=== PATIENT | female | born 1945 | race Caucasian/White ===

== ENCOUNTER → 2022-03-10 | Outpatient (CLI) | payer MEDICARE, OTHER ==
--- NOTE | 2022-03-12 13:10 | Diagnostic Imaging Report ---
INDICATION: Routine screening. Comparison is made with prior mammogram from 03/05/2021. 2-D and 3-D bilateral screening mammography was performed with CAD. Both breasts are heterogeneously dense, limiting the sensitivity of mammography. There is an irregular density in the outer aspect of the left breast best seen on the CC view. This appears to be inferiorly located on the tomographic images but not well seen on the MLO view. Additional views are recommended. Right breast is unremarkable. There are benign calcifications bilaterally. Axillae are unremarkable. IMPRESSION: Left breast density. Additional views recommended for further evaluation. ACR BI-RADS Category 0: Incomplete. (Needs additional imaging evaluation). Result letter will be mailed to the patient. Note: At least 10% of breast cancer is not imaged by mammography. BI-RADS 0 Dictated by: Dictated on workstation # [id number]
== END ==
LOC: RAD 08:00
PROVIDERS: ATTEND Nurse Practitioner Family
DX: Z12.31 Encounter for screening mammogram for malignant neoplasm of breast (principal)
CPT/HCPCS: 77063; 77067

== ENCOUNTER → 2022-03-23 | Outpatient (CLI) | payer MEDICARE, OTHER ==
--- NOTE | 2022-03-23 13:58 | Diagnostic Imaging Report ---
INDICATION: Left breast density. Patient presents for additional views. COMPARISON: Correlation is made with the screening mammogram from 03/10/2022. TECHNIQUE: Unilateral left 2D and 3D diagnostic mammography was performed. This includes spot compression CC, rolled CC, and conventional 90 degree lateral views. FINDINGS: There is a persistent slightly lobulated density in the outer left breast approximately 5 to 6 cm from the nipple. This appears to be inferiorly located on the tomographic images. This is not well-seen on the ML image. No suspicious microcalcifications are seen. IMPRESSION: Persistent density in the lower outer left breast 5-6 cm from the nipple. Further evaluation with ultrasound is recommended and will be performed today. ACR BI-RADS Category 0: Incomplete. (Needs additional imaging evaluation). Result letter will be mailed to the patient. Note: At least 10% of breast cancer is not imaged by mammography. Dictated by: Dictated on workstation # [id number]
--- NOTE | 2022-03-23 15:44 | Diagnostic Imaging Report ---
INDICATION: Left breast density. Correlation is made with diagnostic mammogram earlier the same day as well as screening mammogram from 03/10/2022. Sonographic interrogation of the outer left breast was performed. No sonographic abnormality is seen. No solid or cystic masses detected. IMPRESSION: No sonographic abnormality is seen. The density noted mammographically may represent summation of thyroid glandular elements. Even so, followup left mammogram in 6 months is recommended to show continued stability. ACR BI-RADS Category 3: Probably benign findings. Result letter will be mailed to the patient. Note: At least 10% of breast cancer is not imaged by mammography. BI-RADS Category 3 Dictated by: Dictated on workstation # [id number]
== END ==
LOC: RAD 13:13
PROVIDERS: ATTEND Nurse Practitioner Family
DX: R92.2 Inconclusive mammogram (principal)
CPT/HCPCS: 76642; 77065; G0279

== ENCOUNTER 2022-06-10 05:35 | Outpatient (CLI) | payer MEDICARE, OTHER ==
[~2022-06-10] VITALS: Ht 165.1 cm; Wt 65.9 kg
[2022-06-11] MEDS ORDERED: CALC117719 PO (09:28)
[2022-06-11] MEDS ORDERED: CHOL500050 PO (09:28)
[2022-06-11] MEDS ORDERED: LEVO88CA4 PO (09:28)
[2022-06-11] MEDS ORDERED: PRAV40TA2 PO (09:28)
[2022-06-11] MEDS ORDERED: TRIA1TAB3 PO (09:28)
[2022-06-11] MEDS ORDERED: MULT-1136 PO (09:28)
[2022-06-11] MEDS ORDERED: CALC0.253 PO (09:28)
[2022-06-11] MEDS ORDERED: VITA0.4T18 PO (09:33)
[2022-06-11] MEDS ORDERED: MAGN400C PO (09:33)
[2022-06-11] MEDS ORDERED: GLUC-116 PO (09:33)
== END 2022-06-11 09:45 | disposition home or self-care (01) ==
LOC: PREOP 05:35
PROVIDERS: ATTEND Surgery
DX: Z01.818 Encounter for other preprocedural examination (principal)

== ENCOUNTER 2022-06-23 09:49 | Day surgery (SDC) | payer MEDICARE, OTHER ==
[~2022-06-23] VITALS: Ht 165.1 cm; Wt 65.9 kg
[~2022-06-23 09:49] MED LIST: CALC0.253 PO; CALC117719 PO; CHOL500050 PO; GLUC-116 PO; LEVO88CA4 PO; MAGN400C PO; MULT-1136 PO; PRAV40TA2 PO; TRIA1TAB3 PO; VITA0.4T18 PO
--- NOTE | 2022-06-23 10:17 | Progress Note-Pre Operative ---
Pre-Operative Progress Note Date of Available H&P: May 25, 2022 Date H&P Reviewed: Jun 23, 2022 Time H&P Reviewed: 10:16 History & Physical: H&P Reviewed, Patient Examed, No changes noted Pre-Operative Diagnosis: screening XANDER FORRESTER DO Jun 23, 2022 10:17
[2022-06-23] MEDS ORDERED: LACTATED RINGERS 1,000 ML IV ONE (10:21)
[2022-06-23 10:25] VITALS: BP 160/70
[2022-06-23] MEDS ORDERED: LACTATED RINGERS 1,000 ML IV STA (10:41)
[2022-06-23] MEDS ORDERED: PROPOFOL INJECTION 50 ML IV ONE (10:58)
--- NOTE | 2022-06-23 11:27 | Discharge Inst-Simple/Standard ---
Discharge Inst-Standard Patient Instructions/Follow Up Plan of Care/Instructions/FU: Follow up on as needed basis Activity as Tolerated: Yes Discharge Diet: No Restrictions, Regular Diet XANDER FORRESTER DO Jun 23, 2022 11:26
[2022-06-23 11:30] VITALS: BP 108/64
--- NOTE | 2022-06-23 11:34 | Anesthesia-General Post-Op ---
MAC Patient Condition Mental Status/LOC: Same as Preop Cardiovascular: Satisfactory Nausea/Vomiting: Absent Respiratory: Satisfactory Pain: Controlled Complications: Absent Post Op Complications Complications None Follow Up Care/Instructions Patient Instructions None needed. Anesthesiology Discharge Order Discharge Order Patient is doing well, no complaints, stable vital signs, no apparent adverse anesthesia problems. No complications reported per nursing. SERG MATIAS CRNA Jun 23, 2022 11:34
[2022-06-23 11:35] VITALS: BP 104/61
[2022-06-23 11:40] VITALS: BP 105/63
[2022-06-23 12:15] VITALS: BP 165/72
[2022-06-23 12:40] VITALS: BP 165/72
--- NOTE | 2022-06-23 18:47 | OPERATIVE REPORT ---
DATE OF SERVICE: 06/23/2022 PREOPERATIVE DIAGNOSIS: Screening colonoscopy. POSTOPERATIVE DIAGNOSIS: Normal colon. PROCEDURE: Colonoscopy. SURGEON: Dr. Caruso. ANESTHESIA: Per WET FINISHER. ESTIMATED BLOOD LOSS: None. COMPLICATIONS: None. INDICATIONS: The patient is a 76-year-old needing screening colonoscopy. She understands risks and benefits of procedure and wishes to proceed. Consent was signed and on the chart. DESCRIPTION OF PROCEDURE: The patient was taken to the endoscopy suite, placed in left lateral recumbent position. Timeout was performed. Digital rectal exam was performed. No palpable polyps, masses or ulcerations. Scope was inserted in the rectum, advanced all the way to the cecum with minimal difficulty. Prep was adequate. Scope was slowly retracted back. No polyps, mass or ulceration in the cecum, ascending, transverse, descending and sigmoid colon. Once in the rectum, scope was retroflexed noting no other pathology. Scope was returned to its normal position, slowly withdrawn until completely removed. The patient tolerated the procedure well without any complications. She was taken to recovery room in stable condition. RECOMMENDATIONS: The patient will have a repeat colonoscopy on an as needed basis due to her age. If she has any problems, she should be reevaluated at that time. Job ID: [id number] DocumentID: [id number] Dictated Date: 06/23/2022 11:26:20 Research Animal Attendant Date: 06/23/2022 18:45:00 Dictated By: XANDER CARUSO DO
== END 2022-06-23 12:40 | disposition home or self-care (01) ==
LOC: ENDO 09:49
PROVIDERS: ATTEND Surgery
DX: Z12.11 Encounter for screening for malignant neoplasm of colon (principal)
CPT/HCPCS: G0121

== ENCOUNTER → 2022-09-14 | Outpatient (CLI) | payer MEDICARE, OTHER ==
--- NOTE | 2022-09-14 14:27 | Diagnostic Imaging Report ---
INDICATION: Six-month followup left breast density. COMPARISON: Correlation is made with the prior mammograms from 03/30/2022 and 03/05/2021. TECHNIQUE: Unilateral left 2D and 3D diagnostic mammography was performed with CAD. FINDINGS: The nodular density in the outer left breast appears stable. No new mass or malignant-appearing microcalcifications are seen. There are occasional benign calcifications noted. The left axilla is unremarkable. IMPRESSION: Stable left breast density. An additional six-month followup is recommended to show continued stability. ACR BI-RADS Category 3: Probably benign findings. Result letter will be mailed to the patient. Note: At least 10% of breast cancer is not imaged by mammography. Dictated by: Dictated on workstation # [id number]
== END ==
LOC: RAD 12:50
PROVIDERS: ATTEND Family Medicine
DX: R92.2 Inconclusive mammogram (principal)
CPT/HCPCS: 77065; G0279

== ENCOUNTER → 2022-10-23 | Outpatient (CLI) | payer MEDICARE, OTHER | LOC: LAB 10:14 | PROVIDERS: ATTEND Internal Medicine Endocrinology, Diabetes & Metabolism | DX: E89.2 Postprocedural hypoparathyroidism (principal) | CPT/HCPCS: 36415; 84443 ==

== ENCOUNTER → 2023-03-29 | Outpatient (CLI) | payer MEDICARE, OTHER ==
--- NOTE | 2023-03-29 12:29 | Diagnostic Imaging Report ---
Indication: Routine screening. Comparison is made with prior mammogram 03/10/2022 and 02/25/2021. 2-D and 3-D bilateral screening mammography was performed with CAD. The current study was also evaluated with a Computer Aided Detection (CAD) system. Both breasts are heterogeneously dense, limiting the sensitivity of mammography. The density in the outer left breast mid depth appears stable. No new mass or malignant-appearing microcalcifications are identified. Axillae are unremarkable. IMPRESSION: BI-RADS Category 2 No mammographic features suspicious for malignancy are identified. ACR BI-RADS Category 2: Benign findings. Result letter will be mailed to the patient. Note: At least 10% of breast cancer is not imaged by mammography. Dictated by: Dictated on workstation # [id number]
== END ==
LOC: RAD 07:25
PROVIDERS: ATTEND Family Medicine
DX: Z12.31 Encounter for screening mammogram for malignant neoplasm of breast (principal)
CPT/HCPCS: 77063; 77067

== ENCOUNTER → 2023-06-22 | Outpatient (CLI) | payer MEDICARE, OTHER ==
--- NOTE | 2023-06-22 11:29 | Diagnostic Imaging Report ---
INDICATION: INDICATION: Postmenopausal state COMPARISON: None available FINDINGS: AP Spine L1-L4: [BMD (g/cm2): 1.311] [T-Score: 0.9] [Z-Score: 2.6] [BMD Previous: NA] [BMD % Change: NA] LT Hip Neck: [BMD (g/cm2): 0.819] [T-Score: -1.6] [Z-Score: 0.3] LT Hip Total: [BMD (g/cm2):0.786] [T-Score:-1.8] [Z-Score: 0.0] [BMD Previous: NA] [BMD % Change: NA] RT Hip Neck: [BMD (g/cm2):0.813] [T-Score:-1.6] [Z-Score:0.3] RT Hip Total: [BMD (g/cm2):0.853] [T-score:-1.2] [Z-Score:0.5] [BMD Previous:NA] [BMD % Change:NA] *Indicates significant change from prior examination based on 95% confidence level. World Health Organization criteria for BMD interpretation classify patients as Normal (T-score at or above -1.0), Osteopenic (T-score between -1.0 and -2.5) or Osteoporotic (T-score at or below -2.5). LIMITATIONS AND MODIFICATION: None. FRACTURE RISK (FRAX SCORE): The ten year probability of (%): Major Osteoporotic Fracture: [12.7] Hip Fracture: [2.9] IMPRESSION: 1. Osteopenia (Low bone mass). 2. Baseline examination. 3. See below National Osteoporosis Foundation guidelines on when to potentially initiate pharmacologic therapy. Based on the National Osteoporosis Foundation Guidelines, pharmacologic treatment should be initiated in any of the following, unless clinical conditions suggest otherwise: * Any patient with prior fragility fracture of the hip or vertebrae. A spine fracture indicates 5X risk for subsequent spine fracture and 2X risk for subsequent hip fracture. * Osteoporosis (T-score <-2.5). * Postmenopausal women and men age 50 and older with low bone mass/osteopenia (T-score between -1.0 and -2.5) by DXA and 10-year major osteoporotic fracture greater than 20% or a 10-year probability of hip fracture greater than 3%. These fracture risks are supplied above in the FRAX score, if applicable. * Clinician judgement and/or patient preferences may indicate treatment for people with 10-year fracture probabilities above or below these levels. Dictated by: Dictated on workstation # [id number]
== END ==
LOC: RAD 09:55
PROVIDERS: ATTEND Internal Medicine Endocrinology, Diabetes & Metabolism
DX: M85.851 Other specified disorders of bone density and structure, right thigh (principal); M85.852 Other specified disorders of bone density and structure, left thigh; E89.2 Postprocedural hypoparathyroidism; Z78.0 Asymptomatic menopausal state
CPT/HCPCS: 77080